=== PATIENT | male | born 1975 | race Caucasian/White ===

== ENCOUNTER 2017-06-16 22:44 | Inpatient (IN) | payer OTHER ==
[~2017-06-16] VITALS: Ht 195.6 cm; Wt 139.3 kg
[2017-06-16 23:31] LABS: BASE EXCESS -3.2 mEq/L (-3 to +3); BICARBONATE 19.5 mEq/L (22-26); CARBOXY HGB 2.3 % (0-5); METHEMOGLOBIN 1.2 % (0-1.5); PCO2 28 mm Hg (35-45); PO2 61 mm Hg (80-100); SITE RR; pH 7.45 (7.35-7.45)
[2017-06-16 23:32] LABS: COMMENTS - BLOOD GASES A+C+; DEVICE ROOM AIR; FI02 0.21 %; TOTAL RESP RATE 18 resp/min
[2017-06-17] VITALS (24 sets, daily range): BP systolic 70–114; BP diastolic 36–69
[2017-06-17 00:17] LABS: HEMATOCRIT 33.5 % (38.0-50.0); MCHC 36.1 G/DL (30.0-36.0); MCV 83.1 FL (86-99); MEAN PLAT.VOLUME 12.6 uM^3 (9.0-12.4); PLATELET COUNT 93 K/uL (156-360); RBC DIS.WIDTH-CV 12.7 % (11.8-14.6); RBC DIS.WIDTH-SD 38.8 % (39-53); RED BLOOD COUNT 4.03 M/uL (4.00-5.50); WHITE BLOOD COUNT 11.2 K/uL (4.1-10.2)
[2017-06-17 00:28] LABS: CHLORIDE 100 mEq/L (99-109); POTASSIUM 2.5 mEq/L (3.7-5.4); SODIUM 132 mEq/L (136-147)
[2017-06-17 00:31] LABS: GLUCOSE 105 mg/dL (70-99)
[2017-06-17 00:32] LABS: ANION GAP 11 MEQ/L (2-14)
[2017-06-17 00:33] LABS: TOTAL BILIRUBIN 1.6 mg/dL (0.0-1.0)
[2017-06-17 00:34] LABS: ALKALINE PHOSPHATASE 50 IU/L (3-129); GFR ESTIMATE (CALCULATED) 18 mL/min/ (58.99-99999)
[2017-06-17 00:35] LABS: UREA NITROGEN (BUN) 56 mg/dL (9-23)
[2017-06-17 00:37] LABS: CREATINE KINASE 239 IU/L (1-294)
[2017-06-17 00:49] LABS: INTER. NORMALIZED RATIO 1.3; PROTHROMBIN TIME 14.7 SEC (10.2-12.9)
[2017-06-17 01:39] LABS: ABS NEUTROPHIL COUNT 10.3; ANISOCYTOSIS 1+; BAND NEUTROPHILS 35.7 % (0-8.0); EOSINOPHIL ABS CT 0; INSTRUMENT ABS NEUTROPHIL CT 10.3 K/uL; LYMPHOCYTES 0.9 % (15.0-45.0); METAMYELOCYTES 2.6 %; MICROCYTOSIS 1+; PLAT.SUFFICIENCY DECREASED; POIKILOCYTOSIS 1+; SEG.NEUTROPHILS 56.5 % (46.0-76.0)
[2017-06-17] MEDS ORDERED: TELMISARTAN-HC1 EACH PO (02:01)
[2017-06-17] MEDS ORDERED: LEVOTHYROXINE50 MCG PO (02:01)
[2017-06-17] MEDS ORDERED: LEVOTHYROXINE200 MC1 PO (02:01)
[2017-06-17] MEDS ORDERED: ESOMEPRAZOLE MA40 MG PO (02:02)
[2017-06-17] MEDS ORDERED: CLARITIN,ALAVAR10 MG PO (02:03)
[2017-06-17] MEDS ORDERED: CENTRUM MEN'S1 EACH PO (02:03)
[2017-06-17 05:46] LABS: METH RESISTANT S AUREUS PCR NEGATIVE (NEGATIVE)
[2017-06-17 05:52] LABS: PROBE CHECK PASS; SPECIMEN PROCESSING CONTROL PASS
[2017-06-17 08:40] LABS: ANION GAP 12 MEQ/L (2-14); CHLORIDE 104 MEQ/L (99-109); GFR ESTIMATE (CALCULATED) 20 mL/min/ (58.99-99999); GLUCOSE 103 mg/dL (70-99); SAMPLE HEMOLYSIS CHECK 0; SAMPLE ICTERIC CHECK 0; SAMPLE LIPEMIA CHECK 0; SODIUM 136 MEQ/L (136-147); UREA NITROGEN (BUN) 56 mg/dL (9-23)
[2017-06-17 08:41] LABS: POTASSIUM 3.5 MEQ/L (3.7-5.4)
[2017-06-17 15:21] LABS: ANION GAP 10 MEQ/L (2-14); CHLORIDE 105 MEQ/L (99-109); GFR ESTIMATE (CALCULATED) 24 mL/min/ (58.99-99999); GLUCOSE 119 mg/dL (70-99); MAGNESIUM 1.1 mg/dl (1.3-2.7); POTASSIUM 3.1 MEQ/L (3.7-5.4); SAMPLE HEMOLYSIS CHECK 0; SAMPLE ICTERIC CHECK 0; SAMPLE LIPEMIA CHECK 0; SODIUM 133 MEQ/L (136-147); UREA NITROGEN (BUN) 52 mg/dL (9-23)
[2017-06-17 21:08] LABS: ANION GAP 11 MEQ/L (2-14); CHLORIDE 106 MEQ/L (99-109); GFR ESTIMATE (CALCULATED) 26 mL/min/ (58.99-99999); GLUCOSE 125 mg/dL (70-99); POTASSIUM 3.5 MEQ/L (3.7-5.4); SAMPLE HEMOLYSIS CHECK 0; SAMPLE ICTERIC CHECK 0; SAMPLE LIPEMIA CHECK 0; SODIUM 136 MEQ/L (136-147); UREA NITROGEN (BUN) 48 mg/dL (9-23)
[2017-06-17 21:13] LABS: MAGNESIUM 1.8 mg/dl (1.3-2.7)
[2017-06-18] VITALS (18 sets, daily range): BP systolic 88–128; BP diastolic 47–81
[2017-06-18 06:04] LABS: ANION GAP 11 MEQ/L (2-14); CHLORIDE 106 MEQ/L (99-109); GFR ESTIMATE (CALCULATED) 25 mL/min/ (58.99-99999); GLUCOSE 120 mg/dL (70-99); MAGNESIUM 1.8 mg/dl (1.3-2.7); POTASSIUM 3.4 MEQ/L (3.7-5.4); SAMPLE HEMOLYSIS CHECK 0; SAMPLE ICTERIC CHECK 0; SAMPLE LIPEMIA CHECK 0; SODIUM 136 MEQ/L (136-147); UREA NITROGEN (BUN) 53 mg/dL (9-23)
[2017-06-18 06:40] LABS: HEMATOCRIT 35.4 % (38.0-50.0); MCH 29.8 PG (29.0-34.0); MCHC 34.7 G/DL (30.0-36.0); MCV 85.7 FL (86-99); MEAN PLAT.VOLUME 13.4 uM^3 (9.0-12.4); PLATELET COUNT 87 K/uL (156-360); RBC DIS.WIDTH-SD 44.3 % (39-53); RED BLOOD COUNT 4.13 M/uL (4.00-5.50); WHITE BLOOD COUNT 18.2 K/uL (4.1-10.2)
[2017-06-18 06:49] LABS: ABS NEUTROPHIL COUNT 17.6; BURR CELLS 1+; EOSINOPHIL ABS CT 0; INSTRUMENT ABS NEUTROPHIL CT 16.5 K/uL; METAMYELOCYTES 0.9 %; PLAT.SUFFICIENCY DECREASED; POIKILOCYTOSIS 2+; SMUDGE CELLS 1.7
[2017-06-18 07:00] LABS: BAND NEUTROPHILS 7.8 % (0-8.0); SEG.NEUTROPHILS 88.7 % (46.0-76.0)
[2017-06-18 18:17] LABS: C DIFF TOXIN NEGATIVE (NEGATIVE); PROBE CHECK PASS; SPECIMEN PROCESSING CONTROL PASS
[2017-06-19] VITALS (19 sets, daily range): BP systolic 0–112; BP diastolic 0–65
[2017-06-19 06:32] LABS: HEMATOCRIT 33.5 % (38.0-50.0); MCH 29.1 PG (29.0-34.0); MCHC 34.6 G/DL (30.0-36.0); PLATELET COUNT 64 K/uL (156-360); RBC DIS.WIDTH-CV 14.3 % (11.8-14.6); RBC DIS.WIDTH-SD 44.3 % (39-53); RED BLOOD COUNT 3.99 M/uL (4.00-5.50); WHITE BLOOD COUNT 19.7 K/uL (4.1-10.2)
[2017-06-19 07:04] LABS: ANION GAP 10 MEQ/L (2-14); CHLORIDE 104 MEQ/L (99-109); GFR ESTIMATE (CALCULATED) 27 mL/min/ (58.99-99999); GLUCOSE 97 mg/dL (70-99); MAGNESIUM 1.9 mg/dl (1.3-2.7); POTASSIUM 3.4 MEQ/L (3.7-5.4); SAMPLE HEMOLYSIS CHECK 0; SAMPLE ICTERIC CHECK 1; SAMPLE LIPEMIA CHECK 0; SODIUM 134 MEQ/L (136-147); UREA NITROGEN (BUN) 54 mg/dL (9-23)
[2017-06-19 07:10] LABS: BASOPHIL COUNT 0.1 K/uL (0-0.1); EOSINOPHIL (%) 1.1 % (0-5); EOSINOPHIL COUNT 0.2 K/uL (0-0.3); IMMATURE GRANULOCYTE (%) 2.2 % (0.0-0.7); IMMATURE GRANULOCYTE COUNT 0.4 K/uL; INSTRUMENT ABS NEUTROPHIL CT 17.4 K/uL; LYMPHOCYTE COUNT 0.8 K/uL (1.0-2.8); MONOCYTE (%) 4.2 % (3-12); MONOCYTE COUNT 0.8 K/uL (0-0.8); NEUTROPHIL (%) 88.4 % (45-76); NEUTROPHIL COUNT 17.4 K/uL (1.8-6.4)
[2017-06-19 16:07] LABS: EOSINOPHIL (%) 0.8 % (0-5); EOSINOPHIL COUNT 0.2 K/uL (0-0.3); HEMATOCRIT 33.7 % (38.0-50.0); IMMATURE GRANULOCYTE (%) 1.5 % (0.0-0.7); IMMATURE GRANULOCYTE COUNT 0.3 K/uL; INSTRUMENT ABS NEUTROPHIL CT 17.5 K/uL; LYMPHOCYTE COUNT 1.2 K/uL (1.0-2.8); MCH 29.6 PG (29.0-34.0); MCHC 35.3 G/DL (30.0-36.0); MCV 83.8 FL (86-99); MEAN PLAT.VOLUME 12.4 uM^3 (9.0-12.4); NEUTROPHIL (%) 86.7 % (45-76); NEUTROPHIL COUNT 17.5 K/uL (1.8-6.4); PLATELET COUNT 55 K/uL (156-360); RBC DIS.WIDTH-CV 14.4 % (11.8-14.6); RBC DIS.WIDTH-SD 44.1 % (39-53); RED BLOOD COUNT 4.02 M/uL (4.00-5.50); WHITE BLOOD COUNT 20.2 K/uL (4.1-10.2)
[2017-06-19 16:28] LABS: PROTHROMBIN TIME 11.9 SEC (10.2-12.9)
[2017-06-19 16:30] LABS: ALKALINE PHOSPHATASE 77 IU/L (3-129); ANION GAP 10 MEQ/L (2-14); CHLORIDE 106 MEQ/L (99-109); GFR ESTIMATE (CALCULATED) 26 mL/min/ (58.99-99999); GLUCOSE 95 mg/dL (70-99); POTASSIUM 3.5 MEQ/L (3.7-5.4); SAMPLE HEMOLYSIS CHECK 0; SAMPLE ICTERIC CHECK 1; SAMPLE LIPEMIA CHECK 0; SODIUM 134 MEQ/L (136-147); UREA NITROGEN (BUN) 54 mg/dL (9-23)
[2017-06-19 21:27] LABS: ADD MIUA? YES; BILIRUBIN NEGATIVE; BLOOD MODERATE; COLOR AMBER ((YELLOW)); GLUCOSE (STRIP) NEGATIVE; KETONES NEGATIVE; LEUKOCYTES NEGATIVE; NITRITE NEGATIVE; PROTEIN (STRIP) 30; SPECIFIC GRAVITY 1.014 (1.000-1.030); UROBILINOGEN 0.2 MG/DL (0.2-1.0)
[2017-06-19 21:45] LABS: BACTERIA RARE /HPF; EPITHELIAL CELLS NONE SEEN /HPF; MUCUS TRACE /LPF; RED BLOOD CELLS 0-5 /HPF (0-5)
[2017-06-19 21:47] LABS: UR CREATININE CONCENTRATION 105.8 MG/DL
[2017-06-20] VITALS (19 sets, daily range): BP systolic 91–134; BP diastolic 50–80
[2017-06-20 06:52] LABS: ANION GAP 9 MEQ/L (2-14); CHLORIDE 107 MEQ/L (99-109); GFR ESTIMATE (CALCULATED) 29 mL/min/ (58.99-99999); GLUCOSE 95 mg/dL (70-99); MAGNESIUM 2.2 mg/dl (1.3-2.7); POTASSIUM 3.5 MEQ/L (3.7-5.4); SAMPLE HEMOLYSIS CHECK 0; SAMPLE ICTERIC CHECK 1; SAMPLE LIPEMIA CHECK 0; SODIUM 137 MEQ/L (136-147); UREA NITROGEN (BUN) 53 mg/dL (9-23)
[2017-06-20 07:50] LABS: EOSINOPHIL (%) 1.1 % (0-5); EOSINOPHIL COUNT 0.2 K/uL (0-0.3); IMMATURE GRANULOCYTE (%) 1.7 % (0.0-0.7); IMMATURE GRANULOCYTE COUNT 0.3 K/uL; INSTRUMENT ABS NEUTROPHIL CT 14.7 K/uL; LYMPHOCYTE COUNT 1.2 K/uL (1.0-2.8); MCH 30.5 PG (29.0-34.0); MCHC 35.9 G/DL (30.0-36.0); MCV 84.9 FL (86-99); MONOCYTE (%) 6.4 % (3-12); MONOCYTE COUNT 1.1 K/uL (0-0.8); NEUTROPHIL (%) 83.7 % (45-76); NEUTROPHIL COUNT 14.7 K/uL (1.8-6.4); RBC DIS.WIDTH-CV 14.7 % (11.8-14.6); RBC DIS.WIDTH-SD 45.8 % (39-53); RED BLOOD COUNT 3.77 M/uL (4.00-5.50); WHITE BLOOD COUNT 17.6 K/uL (4.1-10.2)
[2017-06-20 08:19] LABS: MEAN PLAT.VOLUME 13.6 uM^3 (9.0-12.4); PLAT.SUFFICIENCY DECREASED; PLATELET COUNT 60 K/uL (156-360)
[2017-06-21] VITALS (10 sets, daily range): BP systolic 95–136; BP diastolic 50–83
[2017-06-21 05:44] LABS: EOSINOPHIL COUNT 0.3 K/uL (0-0.3); HEMATOCRIT 31.4 % (38.0-50.0); IMMATURE GRANULOCYTE (%) 2.3 % (0.0-0.7); IMMATURE GRANULOCYTE COUNT 0.4 K/uL; LYMPHOCYTE COUNT 1.7 K/uL (1.0-2.8); MCH 29.4 PG (29.0-34.0); MCHC 35.4 G/DL (30.0-36.0); MCV 83.3 FL (86-99); MEAN PLAT.VOLUME 12.9 uM^3 (9.0-12.4); MONOCYTE (%) 9.6 % (3-12); MONOCYTE COUNT 1.6 K/uL (0-0.8); NEUTROPHIL (%) 76.1 % (45-76); RBC DIS.WIDTH-CV 14.3 % (11.8-14.6); RBC DIS.WIDTH-SD 43.7 % (39-53); RED BLOOD COUNT 3.77 M/uL (4.00-5.50); WHITE BLOOD COUNT 17.1 K/uL (4.1-10.2)
[2017-06-21 05:45] LABS: PLATELET COUNT 94 K/uL (156-360)
[2017-06-21 06:06] LABS: C3 COMPLEMENT 97 MG/DL (58-170); C4 COMPLEMENT 33 MG/DL (10-40)
[2017-06-21 06:21] LABS: ANION GAP 8 MEQ/L (2-14); CHLORIDE 113 MEQ/L (99-109); GFR ESTIMATE (CALCULATED) 34 mL/min/ (58.99-99999); GLUCOSE 95 mg/dL (70-99); MAGNESIUM 1.8 mg/dl (1.3-2.7); POTASSIUM 3.4 MEQ/L (3.7-5.4); SAMPLE HEMOLYSIS CHECK 0; SAMPLE ICTERIC CHECK 1; SAMPLE LIPEMIA CHECK 0; SODIUM 143 MEQ/L (136-147); UREA NITROGEN (BUN) 46 mg/dL (9-23)
[2017-06-22] VITALS (9 sets, daily range): BP systolic 103–140; BP diastolic 69–77
[2017-06-22 05:33] LABS: HEMATOCRIT 30.2 % (38.0-50.0); MCH 29.6 PG (29.0-34.0); MCHC 35.1 G/DL (30.0-36.0); MCV 84.4 FL (86-99); MEAN PLAT.VOLUME 11.9 uM^3 (9.0-12.4); RBC DIS.WIDTH-CV 14.3 % (11.8-14.6); RBC DIS.WIDTH-SD 44.1 % (39-53); RED BLOOD COUNT 3.58 M/uL (4.00-5.50); WHITE BLOOD COUNT 19.6 K/uL (4.1-10.2)
[2017-06-22 05:34] LABS: PLATELET COUNT 129 K/uL (156-360)
[2017-06-22 06:11] LABS: ANION GAP 9 MEQ/L (2-14); CHLORIDE 109 MEQ/L (99-109); GFR ESTIMATE (CALCULATED) 51 mL/min/ (58.99-99999); GLUCOSE 87 mg/dL (70-99); MAGNESIUM 1.6 mg/dl (1.3-2.7); POTASSIUM 3.6 MEQ/L (3.7-5.4); SAMPLE HEMOLYSIS CHECK 0; SAMPLE ICTERIC CHECK 0; SAMPLE LIPEMIA CHECK 0; SODIUM 142 MEQ/L (136-147); UREA NITROGEN (BUN) 38 mg/dL (9-23)
[2017-06-22 06:23] LABS: ABS NEUTROPHIL COUNT 15.9; BAND NEUTROPHILS 0.9 % (0-8.0); EOSINOPHIL ABS CT 0.7; EOSINOPHILS 3.5 % (0-5.0); INSTRUMENT ABS NEUTROPHIL CT 12.7 K/uL; LYMPHOCYTES 8.7 % (15.0-45.0); PLAT.SUFFICIENCY DECREASED; SMUDGE CELLS 6.1
[2017-06-23 04:24] VITALS: BP 143/77
[2017-06-23 06:00] LABS: HEMATOCRIT 28.5 % (38.0-50.0); MCH 29.3 PG (29.0-34.0); MCHC 34.4 G/DL (30.0-36.0); MCV 85.3 FL (86-99); MEAN PLAT.VOLUME 11.4 uM^3 (9.0-12.4); RBC DIS.WIDTH-CV 14.5 % (11.8-14.6); RBC DIS.WIDTH-SD 45.1 % (39-53); RED BLOOD COUNT 3.34 M/uL (4.00-5.50); WHITE BLOOD COUNT 16.9 K/uL (4.1-10.2)
[2017-06-23 06:02] LABS: PLATELET COUNT 182 K/uL (156-360)
[2017-06-23 06:17] LABS: ANION GAP 5 MEQ/L (2-14); CHLORIDE 111 MEQ/L (99-109); GFR ESTIMATE (CALCULATED) > 59 mL/min/ (58.99-99999); GLUCOSE 96 mg/dL (70-99); POTASSIUM 4.2 MEQ/L (3.7-5.4); SAMPLE HEMOLYSIS CHECK 0; SAMPLE ICTERIC CHECK 0; SAMPLE LIPEMIA CHECK 0; SODIUM 140 MEQ/L (136-147); UREA NITROGEN (BUN) 29 mg/dL (9-23)
[2017-06-23 06:26] LABS: ABS NEUTROPHIL COUNT 14.2; ATYPICAL LYMPHOCYTE 0.9 %; BAND NEUTROPHILS 0.9 % (0-8.0); EOSINOPHIL ABS CT 0; INSTRUMENT ABS NEUTROPHIL CT 10.1 K/uL; LYMPHOCYTES 8.7 % (15.0-45.0); NUCLEATED RBC'S 0.9; PLAT.SUFFICIENCY ADEQUATE; SEG.NEUTROPHILS 83.4 % (46.0-76.0)
[2017-06-23 07:53] VITALS: BP 122/70
[2017-06-23] MEDS ORDERED: VITAMIN D2000 UNI1 PO (11:16)
[2017-06-23] MEDS ORDERED: AUGMENTIN875 MG PO (11:16)
== END 2017-06-23 13:43 | disposition home or self-care (01) | DRG 867 ==
LOC: EME → EDBD 22:44 → EDOF 06-17 01:33 → 3EAST 06-17 01:33 → 4WEST 06-17 01:33 → ENRESERV 06-17 01:37 → 4WEST 06-17 04:12 → CANRESERV 06-18 12:18 → ENRESERV 06-18 12:18 → 3EAST 06-18 16:42 → ENRESERV 06-19 09:12 → 4EAST 06-19 10:12 → ENRESERV 06-19 12:11 → 4WEST 06-19 12:29 → ENRESERV 06-21 03:52 → 5SOUTH 06-22 13:50
PROVIDERS: Emergency Medicine; Family Medicine; Internal Medicine; Internal Medicine Critical Care Medicine; Specialist
DX: A48.3 Toxic shock syndrome (principal); R65.21 Severe sepsis with septic shock; J02.0 Streptococcal pharyngitis; N17.0 Acute kidney failure with tubular necrosis; J96.00 Acute respiratory failure, unspecified whether with hypoxia or hypercapnia; J20.2 Acute bronchitis due to streptococcus; B95.0 Streptococcus, group A, as the cause of diseases classified elsewhere; I48.0 Paroxysmal atrial fibrillation; E87.70 Fluid overload, unspecified; D69.59 Other secondary thrombocytopenia; E87.2 Acidosis; E88.09 Other disorders of plasma-protein metabolism, not elsewhere classified; N14.0 Analgesic nephropathy; T39.395A Adverse effect of other nonsteroidal anti-inflammatory drugs [NSAID], initial encounter; E66.01 Morbid (severe) obesity due to excess calories; Z68.36 Body mass index [BMI] 36.0-36.9, adult; R31.29 Other microscopic hematuria; R80.9 Proteinuria, unspecified; E55.9 Vitamin D deficiency, unspecified; E86.1 Hypovolemia; E87.6 Hypokalemia; T50.2X5A Adverse effect of carbonic-anhydrase inhibitors, benzothiadiazides and other diuretics, initial encounter; R91.8 Other nonspecific abnormal finding of lung field; E03.9 Hypothyroidism, unspecified; I10 Essential (primary) hypertension
CPT/HCPCS: 36600; 71010; 71250; 80048; 80048 91; 80053; 81003; 82306; 82330; 82436; 82550; 82570; 82803; 83605; 83735; 84100; 84156; 84300; 85025; 85025 91; 85610; 85730; 86060 90; 86160; 87040; 87077; 87186; 87493; 87502; 87641; 87651 90; 87801; 93005; 93306; 94640; 94640 76; 94660; 94760; 94799; 99202; 99281; 99285; C1751; C1788; J0610; J0696; J1200; J1644; J1940; J2270; J2405; J2540; J3475; J3480; J7030; J7050; J7120; S0028